=== PATIENT | female | born 2000 | race African-American/Black ===

== ENCOUNTER 2020-06-15 16:52 | Day surgery (SDC) | payer OTHER, MEDICAID ==
[2020-06-15 17:33] VITALS: BP 102/71; TEMP 98.8; BMI 20.2
--- NOTE | 2020-06-15 18:10 | PDOC.FPROB ---
FMR OB H&P: HPI - History of Present Illness Chief Complaint: Sent from clinic for variable decels and FHT in 160s Indentification: @ 36.0 wga by 1T US History of Present Illness: Patient was seen at [facility] by Dr. Sousa for the first time today. She reports receiving care in [place], [place] by Dr. Velásquez at the [facility]. She does not have any records with her and believes that she was last seen in March. She denies any issues during this and reports that she has not been told of any abnormal lab results. She denies vaginal bleeding, LOF, vaginal pain, and dysuria. She reports some intermittent vaginal discharge that is sometimes brown in color, but denies odor or itching. She endorses movement and occasional, irregular contractions. She says the contractions do not occur every day and are not consistent. Denies DIMAS, abdominal pain, change in vision, edema. Primary Care Physician: 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 - Surgical History Sx History: Denies - Social History Social History: Denies t/a/d; currently unemployed - Family History Family History: Reports DM and CHF in grandmother, HTN in mother, and asthma in brother FMR OB H&P: Medications - Current Home Medications: Medication Instructions Recorded Confirmed Type Vit No.129/Iron/Folic 1 each PO DAILY 06/15/20 06/15/20 History [ Tablet] Allergies/Adverse Reactions: Allergies Allergy/AdvReac Type Severity Reaction Status Date / Time No Known Allergies Allergy Verified 06/15/20 17:28 FMR OB H&P: ROS - Review of Systems General: denies: fever/chills, fatigue Eyes: denies: eye pain, vision changes, floaters ENT: denies: nasal congestion, rhinorrhea Cardiovascular: denies: chest pain, palpitation, edema Respiratory: denies: cough, congestion, shortness of breath Gastrointestinal: reports: nausea, constipation. denies: abdominal pain, vomiting, diarrhea Genitourinary (Female): reports: vaginal discharge, contractions. denies: dysuria, vaginal bleeding Musculoskeletal: denies: pain, tenderness Neurologic: denies: numbness, seizures Integumentary: denies: itching, rash Psychological: denies: depression, anxiety FMR OB H&P: Vital Signs - Maternal Vital signs: Vital Signs - First Documented Temp Pulse Resp BP 98.8 F 92 18 102/71 06/15/20 17:15 06/15/20 17:15 06/15/20 17:15 06/15/20 17:15 - Heart Tones Baseline: 130 Variability: moderate Acceleration: present Deceleration: absent [place] contractions every: q2-3 min, no feeling contractions FMR OB H&P: Physical Exam - Physical Exam General: NAD, awake, alert and oriented HEENT: normocephalic and atraumatic, PERRLA, EOMI, MMM Neck: supple, FROM Heart: RRR, normal S1/S2, no murmurs/rubs/gallops General: CTAB, no respiratory distress Abdomen: gravid, non-tender Musculoskeletal: FROM in all four extremities, no misalignment/asymmetry Neurological: cranial nerves II through XII intact, sensation to pain,touch and proprioception grossly normal Skin: no rash, no jaundice Lymphatic: no unusual bruising or bleeding, no purpura, no petechia Psychiatric: intact recent and remote memory, good judgement and insight, normal mood and affect - Pelvic Exam Vulva: normal hair distribution, appropriate jaylene stage SVE: 1, thick, posterior Presentation: Vertex Estimated Weight: other (2454) FMR OB H&P: A/P Disposition: 19 yo at 36 wga who presents from clinic due to concerning NST with FHT in 160s and variable decels sIUP with with concerning NST - per report, patient was found to have FHTs in 160s and multiple variable decels on NST - patient was sent from clinic for further evaluation - patient has had inconsistent care with last appointment in March - NST on L&D: Reactive; FHT baseline of 130 with moderate variability and no decels present - [place]: q 2-3 min, but patient is not feeling contractions - SVE: 1/thick/posterior - BPP: 03/28, vertex with anterior placenta - Growth: measuring at 34.6 wga with VAISHALI of 07/21; estimated weight of 2454 g - will obtain CBC, UDS, UA, GBS swab; 1 hour GTT not done - will encourage PO intake of fluids at this time and continue to monitor with NST pending lab results Dispo: will likely discharge patient home later tonight with close f/u with [facility] Discussion: Date/Time: 06/15/201809 This H&P was discussed with Dr. Siddiqui and Dr. Chamberlain who agree with the above documentation and plan. Agree with the above plan by Dr. Mcginnis. Will get labs, US. Will likely send patient home once these are completed. Will request records from provider in [place]. Patient to follow up at [facility] for continued care. Case discussed with Dr. Chamberlain. Addendum - Attending - Attending Attestation Date/Time: 06/15/201934 I personally evaluated the patient and discussed the management with Dr. Mcginnis I agree with the History, Examination, Assessment and Plan documented above with any addition or exceptions noted below. Patient sent for triage for evaluation of intermittent variables seen on NST in clinic. Patient reported good movement. Has had lapse in care since 2T. Records unavailable. heart tones reassuring on monitoring since arrival. BPP 03/28. growth less than expected based on patient stated VAISHALI. Intermittent to regular contractions on toco. However patient unaware. Full maternal bladder on imaging. After voiding, contraction pattern spaced. No c hange on exam. Ok to d/c to home. Precautions discussed. Patient to follow up with PCP later in the week. Ameya
--- NOTE | 2020-06-15 19:53 | ULT ---
LIMITED OB ULTRASOUND WITH BIOPHYSICAL PROFILE: Indications: Variable heart deceleration. FINDINGS: Viable intrauterine . Gestational age by ultrasound is 34 weeks 6 days. Biometry: BPD 36 weeks 0 days HC 34 weeks 5 days AC 34 weeks 2 days FL 34 weeks 2 days EFW: 2454 grams 35 weeks 1 day Amniotic fluid: Within normal range KAYLEN: 14.2 cm Position: Vertex Placenta: Anterior heart rate: 147 beats/minute tone: 2 breathin movement: 2 Amniotic fluid: 2 Total score 8/8. IMPRESSION: As above. POS: AGW
[2020-06-15 20:11] LABS: #Basophils 0.1 thou/uL (0.0-0.2); #Eosinphils 0.1 thou/uL (0.0-0.7); #Lymphocytes 1.5 thou/uL (1.20-3.40); #Monocytes 0.6 thou/uL (0.11-0.59); %Basophils 0.5 % (0.0-1.0); %Eosinophils 0.6 % (0.0-10.0); %Lymphocytes 13.5 % (21.0-51.0); %Monocytes 5.2 % (0.0-10.0); %Neutrophils 80.3 % (42.0-75.0); Hemoglobin 10.8 g/dL (12.0-16.0); Mean Corpuscular HGB CONC 35.2 g/dL (32.0-36.0); Mean Corpuscular Hemoglobin 29.2 pg (27.0-31.0); Mean Corpuscular Volume 83.1 fL (78.0-98.0); Mean Platelet Volume 8.5 fL (7.4-10.4); Platelet Count 221 thou/uL (130-400); RBC Distribution Width 13.5 % (11.5-14.5); Red Blood Cell (RBC) Count 3.69 mill/uL (4.20-5.40); White Blood Cell (WBC) Count 11.2 thou/uL (4.8-10.8)
[2020-06-15 21:32] LABS: Bacteria/HPF None Seen HPF (None Seen); Bilirubin Negative (Negative); Blood, Urine Negative (Negative); Clarity Clear (Clear); Glucose, Urine (Dipstick) Normal (Negative); Ketone, Urine 60 mg/dL (Negative); Leukocyte 500 Leu/uL (Negative); Nitrite Negative (Negative); Protein, Urine (Dipstick) Negative (Neg-Trace); RBC/HPF 0-3 HPF (0-3); Specific Gravity, Urine 1.014 (1.002-1.036); Urobilinogen Normal mg/dL (Less than 2)
[2020-06-15 21:40] LABS: Amphetamine Not Detected (NotDetected); Barbiturates Screen Not Detected (NotDetected); Benzodiazepine Screen Not Detected (NotDetected); Cocaine Metabolite Screen Not Detected (NotDetected); Medtox Control Line Valid? VALID (VALID); Medtox Reader # READER 4; Methadone Not Detected (NotDetected); Methamphetamine Not Detected (NotDetected); Opiate Screen Not Detected (NotDetected); Oxycodone Screen Not Detected (NotDetected); Phencyclidine (PCP) Not Detected (NotDetected); THC/Cannabinoid Screen Not Detected (NotDetected); Tricyclic Screen Not Detected (NotDetected)
== END 2020-06-15 21:25 | disposition home or self-care (01) ==
LOC: L&D/OP 16:52
PROVIDERS: ATTEND Student in an Organized Health Care Education/Training Program
DX: O36.8130 Decreased fetal movements, third trimester, not applicable or unspecified (principal); Z3A.36 36 weeks gestation of pregnancy
CPT/HCPCS: 76815; 76819; 80306; 81003; 81015; 85025; 87081; 99283

== ENCOUNTER 2020-07-07 10:25 | Inpatient (IN) | payer MEDICAID, OTHER ==
[~2020-07-07 10:25] MED LIST: PROPOFOL 200 MG/20 ML VIAL ONE; Succinylcholine 200 MG/10 ml SYRINGE FS ONE
--- NOTE | 2020-07-07 10:58 | PDOC.FPROB ---
FMR OB H&P: HPI - History of Present Illness Chief Complaint: Oligohydramnios, IUGR History of Present Illness: Patient is a 19 year old at 39,1k by LMP/14.4wk US who was referred to triage from clinic due to oligohydramnios with KAYLEN 3.5, DVP 1.83 and IUGR with Hadlock 8.9% in clinic today. Patient was lost to follow up during 2T at [facility] due to moving communities and established care at [facility] at 35 wks. +FM. Denies vaginal bleeding, vaginal discharge, and LOF. Also denies headache, vision changes, chest pain, SOB, upper abdominal pain and edema. Patient reports anxiety regarding possible delivery. Primary Care Physician: ALISON Sousa/Mary FMR OB H&P: Current - Care : 1 Para: 0 Gestational age: 39.1wk Due date: 07/13/20 Dating Criteria: LMP/14.4wk US Course/Complications: Anemia of on iron. Concern for oligohydramnios and IUGR on US today. BPP on 06/15 was 8/8. - OB Labs Blood type: O RH: positive Antibody Screen: negative HIV: negative RPR: negative HepBsAg: negative Rubella: immune Gonorrhea: negative Chlamydia: negative Pap Smear: NILM 01/22/20 1 hour gtt: 104 GBS: negative H&H: 9.8/28.5 - Anatomy Survey Anatomy survey: Hadlock 50% on 20 wk US FMR OB H&P: History - Past Medical History PMH: Anxiety, hx pyelonephritis, childhood trauma - OB History OB History: . Hx anemia of - [employer] History: Denies hx of STI - Surgical History Sx History: None - Social History Social History: Denies smoking, ETOH and drug use - Family History Family History: Mother - HTN Maternal grandfather - CHF Sibling - asthma FMR OB H&P: Medications - Current Home Medications: Medication Instructions Recorded Confirmed Type Vit No.129/Iron/Folic 1 each PO DAILY 06/15/20 06/15/20 History [ Tablet] Docusate [Colace] 100 mg PO DAILY 07/07/20 07/07/20 History Iron 18 mg PO DAILY 07/07/20 07/07/20 History Allergies/Adverse Reactions: Allergies Allergy/AdvReac Type Severity Reaction Status Date / Time Fish Containing Products Allergy Intermediate Hives Verified 07/07/20 11:33 peanut Allergy Intermediate Hives Verified 07/07/20 11:33 FMR OB H&P: ROS - Review of Systems General: denies: fever/chills, fatigue Eyes: denies: vision changes, double vision ENT: denies: nasal congestion Cardiovascular: denies: chest pain, edema Respiratory: denies: shortness of breath Gastrointestinal: denies: abdominal pain Genitourinary (Female): denies: dysuria, hematuria, vaginal discharge, vaginal pain, vaginal bleeding, contractions Musculoskeletal: denies: pain Neurologic: denies: weakness, headache Integumentary: denies: rash Hematologic/Lymphatic: denies: prolonged or excessive bleeding Psychological: denies: depression, anxiety FMR OB H&P: Vital Signs - Maternal Vital signs: BP 106/70 - Heart Tones Baseline: 130 Variability: moderate Acceleration: present Deceleration: absent Category: category 1 [place] contractions every: 5 min FMR OB H&P: Physical Exam - Physical Exam General: NAD, awake, alert and oriented Deviation from normal: Tearful HEENT: normocephalic and atraumatic, MMM Neck: FROM, trachea midline Heart: RRR, normal S1/S2, no murmurs/rubs/gallops, no edema General: CTAB, no respiratory distress, good air movement Abdomen: gravid, bowel sound present Musculoskeletal: FROM in all four extremities, no misalignment/asymmetry Neurological: no focal deficit Skin: no jaundice Psychiatric: normal mood and affect - Pelvic Exam Vulva: normal hair distribution, no lesions, no discharge, no blood Deviation from normal: 1/T/-3 Tierney score: 1 Presentation: Cephalic FMR OB H&P: A/P Disposition: 19 year old who was sent to triage from clinic due to IUGR and oligohydramnios on US Eng IUP at 39.1wk by LMP/14.4wk US. GBS negative. Tierney score 1. -Order full BPP and growth scan to confirm oligo/IUGR -Consider mIOL via cytotec pending results -Refused COVID screen 1220 1/T/-3, variable decels present on initial monitoring but have resolved IUGR 20 wk US Hadlock 50%. Hadlock in clinic today 8.9%. -F/u US Oligohydramnios KAYLEN 14 with BPP / on 06/15. KAYLEN 3.5 in clinic today. -F/u US Anemia of -On iron, PNV Anxiety Childhood trauma -Reports mood is controlled with herbal remedies UPDATE @ 4009 OB US: Hadlock 13% BPD, 8% HC, unable to calculate AC, 1% FL. Unable to calculat e EFW. BPP: 01/26. KAYLEN total 4.8 (0, 3.26, 0, 1.56). Patient agreed to induction. Will began cytotec PO per patient preference. Order cytotec 50mg Q4H. Dispo: Admit to L&D for mIOL for IUGR and oligo. Next cervical check at 1715. Discussion: Date/Time: 07/07/20 9610 This H&P was discussed with [Tree Solitario] and [Lonnie] who agree with the above documentation and plan. Addendum - Attending - Attending Attestation Date/Time: 07/08/20 0898 I personally evaluated the patient and discussed the management with Dr. Bishop. I agree with the History, Examination, Assessment and Plan documented above with any addition or exceptions noted below.
[2020-07-07 11:32] VITALS: BMI 21.6
[2020-07-07] MEDS ORDERED: hydrALAZINE 20 MG/ML VIAL SLOW IVP PRN (12:12)
[2020-07-07] MEDS ORDERED: Ondansetron PF 4 MG/2 ML Vial IVP PRN ×2 (13:10→17:19)
[2020-07-07] MEDS ORDERED: Lidocaine 1% (PF) 30 ML VIAL SC PRN (13:10)
[2020-07-07] MEDS ORDERED: NS / Oxytocin 40 units/1000ml 1,000 ML IV PRN (13:10)
[2020-07-07] MEDS ORDERED: Acetaminophen 500 MG TAB PO PRN (13:10)
[2020-07-07] MEDS ORDERED: Promethazine HCl 25 MG/ML VIAL IM PRN ×2 (13:10→17:19)
[2020-07-07] MEDS ORDERED: Lactated Ringer's 1,000 ML IV SCH (13:15)
[2020-07-07] MEDS ORDERED: Misoprostol 100 MCG TAB PO SCH (13:15)
[2020-07-07 13:51] LABS: Hemoglobin 9.9 g/dL (12.0-16.0); Mean Corpuscular Hemoglobin 28.1 pg (27.0-31.0); Mean Corpuscular Volume 80.2 fL (78.0-98.0); Mean Platelet Volume 9.1 fL (7.4-10.4); Platelet Count 199 thou/uL (130-400); RBC Distribution Width 14.1 % (11.5-14.5); Red Blood Cell (RBC) Count 3.53 mill/uL (4.20-5.40); White Blood Cell (WBC) Count 9.6 thou/uL (4.8-10.8)
[2020-07-07 14:32] LABS: Syphilis Antibody Nonreactive (Nonreactive); Syphilis Antibody Index 0.05 S/CO (<1.00 Non-Reactive)
[2020-07-07 14:33] LABS: HBSAg Index 0.16 S/CO (0-0.99); Hep B Surf Ag Non-Reactive S/CO (NonReactive)
[2020-07-07] MEDS ORDERED: Terbutaline Sulfate 1 MG/ML VIAL ONE (14:45)
--- NOTE | 2020-07-07 14:57 | PDOC.LDPN ---
Labor & Delivery Progress Note - Subjective Subjective: other (expressed concern about baby's health, tearful) - Objective Vital signs reviewed and normal: yes General: NAD FHT: category 2, late decelerations (recurrent late decels, dropping to 60s) [place] contractions every: 1-2 min Resuscitative measures: maternal IV fluids, maternal position change Plan: resuscitative measures -: 19 year old who was admitted to L&D for mIOL for IUGR and oligohydramnios Eng IUP at 39.1wk by LMP/14.4wk US. GBS negative. Tierney score 1. -Full BPP/Growth scan confirmed IUGR and oligo -Refused COVID screen 1220 1/T/-3, variable decels present on initial monitoring but have resolved 1350 PO cytotec #1 administered 1430 Paged by nursing. Recurrent late decels with FHT in 60s. Contractions every 1-2 min. Ordered terbutaline that resolved lates. Decision was made to go to c- section due to oligo, IUGR and intolerance of labor. IUGR 20 wk US Hadlock 50%. Hadlock in clinic today 8.9%. -OB US on L&D: Hadlock 13% BPD, 8% HC, unable to calculate AC, 1% FL. Unable to calculate EFW. Oligohydramnios KAYLEN 14 with BPP / on 06/15. KAYLEN 3.5 in clinic today. -BPP on L&D: 01/26. KAYLEN total 4.8 (0, 3.26, 0, 1.56) Anemia of -On iron, PNV Anxiety Childhood trauma -Reports mood is controlled with herbal remedies Dispo: Risks and benefits of were discussed with the patient who expressed her understanding. Will proceed with by Dr. Jose Sousa. ATTENDING ADDENDUM: see my event note for details.
[2020-07-07] MEDS ORDERED: Bicitra 30 ML UDCUP ONE (14:58)
--- NOTE | 2020-07-07 15:05 | PDOC.EVN ---
Event Note - Event Note Event Note: Called by residents that patient was experiencing recurrent lates after cytotec. I told to admin terbutaline for tocolysis. I evaluated the patient and FHT. Baby was having recurrent lates into the 60s which have resolved with terbutaline. Given oligo, IURG, and now intolerance of labor, discussed recommendation for pLTCS. Discussed R/B/A/I for procedure and patient agreed. nursing and anesthesia notified. will proceed with urgent pLTCS. ancef 2g ordered.
--- NOTE | 2020-07-07 15:07 | ULT ---
LIMITED OBSTETRICAL ULTRASOUND BIOPHYSICAL PROFILE: Date: 07/07/2020 INDICATION: Growth and full BFP. COMPARISON: Prior exam dated 06/15/2020. FINDINGS: Biophysical profile for this fetus is 8/8. Fetus received 2/2 for tone, breathing, moveme nts, and amniotic fluid level. Amniotic fluid index is 4.8 cm. Cervical length is 3.5 cm, without evidence of funneling. Fetus in vertex presentation. Placenta is anterior and to left aspect of uterus. Cardiac activity is noted at 150 beats/minute. BPD measured 8.98 cm, giving estimated gestational age of 36 weeks/3 days. HC measured 32.90 cm, giving estimated gestational age of 37 weeks/3 days. AC measured 27.58 cm, giving estimated gestational age of 31 weeks/5 days FL measured 6.89 cm, giving estimated gestational age of 35 weeks/3 days. Estimated weight is 2270 gm +/- 336 gm (5 lbs 0 oz +/- 12 oz). Average gestational age by ultrasound based on biometry is 35 weeks and 2 days with estimated d ue date of 08/09/2020. Clinical age is 39 weeks and 1 day with estimated due date of 07/13/2020. IMPRESSION: 1. Biophysical profile is 8/8. 2. Size and dates as above. 3. Oligohydramnios of 4.8 cm. POS: BH
[2020-07-07] MEDS ORDERED: Morphine PF 10 MG/10 ML VIAL ONE (15:14)
[2020-07-07] MEDS ORDERED: Ondansetron PF 4 MG/2 ML Vial ONE ×2 (15:14→16:56)
[2020-07-07] MEDS ORDERED: ePHEDrine 50 MG/ML VIAL ONE (15:14)
[2020-07-07] MEDS ORDERED: Oxytocin 10 UNITS/ML VIAL ONE (15:14)
[2020-07-07] MEDS ORDERED: CEFAZOLIN 2 GM in Premix Bag 1 BAG IVPB SCH (15:15)
[2020-07-07] MEDS ORDERED: Terbutaline Sulfate 1 MG/ML VIAL SC SCH (15:15)
[2020-07-07] MEDS ORDERED: Bicitra 30 ML UDCUP PO SCH ×2 (15:15)
[2020-07-07] MEDS ORDERED: PHENYLEPHRINE-NS 100 MCG/ML 10 ML SYRINGE ONE (15:42)
[2020-07-07] MEDS ORDERED: Lidocaine 1% PF 5 ML VIAL ONE (15:48)
[2020-07-07] MEDS ORDERED: Midazolam HCl 2 mg/2 ml Vial ONE (15:55)
[2020-07-07] MEDS ORDERED: Fentanyl 250 MCG/5 ML VIAL ONE (15:55)
[2020-07-07 16:20] LABS: Actual Bicarbonate (HCO3a) 22.3 mEq/L (22-28); Base Excess (BEa) -4.5 mEq/L (-2.0 to +3.0)
[2020-07-07 16:23] LABS: Actual Bicarbonate (HCO3v) 23 mEq/L (22-28); Base Excess -4.9 mEq/L (-2.0 to +3.0); pH (Cord, venous) 7.25 (7.32-7.43)
[2020-07-07] MEDS ORDERED: Dexamethasone 4 mg/ml Vial ONE (16:35)
--- NOTE | 2020-07-07 17:14 | PDOC.OPDEL ---
OB Operative/Delivery Note Delivery Dr/Surgeon: Clementine/Merry Pre-Delivery Diagnosis: medically indicated induction (Oilgo, IUGR), non- reassuring tracing Anesthesia: other (general) - Findings A Sex: male - 1 min: 2 - 5 min: 8 - Additional Findings/Plan Placenta delivered: spontaneous findings: low transverse hysterotomy without extension, normal uterus, normal tubes, normal ovaries Estimated blood loss: 540 Compilations/Other Findings: Date of Procedure: 07/07/20 Resident Surgeon: Clementine Attending Surgeon: Merry Procedure: Primary low transverse caesarean section Preoperative Diagnosis: 1) Term intrauterine 2) Oligohydramnios 3) IUGR 4) Non-reassuring heart tones, failed induction of labor 5) Anemia of Postoperative Diagnosis: 1) Term , delivered Anesthesia: General Indications: The patient is a 19year old female at 39.1 weeks gestation who presented for medically indicated induction of labor for oligohydramnios and IUGR. After initial oral cytotec dose, FHR demonstrated recurrent late decels with prolonged bradycardia. Terbutaline was give and discussion was had with patient regarding proceeding with pLTCS for failed induction of labor and NRFHT. After R/B/A, patient agreed to proceed with pLTCS. At time of transfer to OR from L&D, FHT was cat 1. Procedure in Detail: After risks, benefits, and alternatives were explained to the patient, she gave informed consent. Pre-operative antibiotics included Cefazolin 2 gram IV. The patient was taken to the operating room and spinal anesthesia was initiated. She was placed in the supine position with a left tilt and prepped and draped in usual sterile fashion. Testing of spinal was positive for sharp pain and thus decision was made to transition to general anesthesia. General anesthesia was initiated. A Pfannenstiel incision was made with a scalpel and carried down to the level of the fascia which was sharply nicked. The fascial cut was extended bilaterally with Chaves scissors. The inferior and superior edges of the cut fascial edges were elevated with Maribell clamps and the underlying rectus muscles were sharply and bluntly dissected free. The recti were divided digitally and retracted manually. The peritoneum was entered bluntly and retracted manually. Tanvir-O was placed. A low transverse score was made with a new, clean scalpel and the uterus was entered in the midline bluntly. Clear fluid was seen. The hysterotomy was extended manually. The was noted to be vertex and easily delivered with fundal pressure at 1556. Mouth and nares were bulb suctioned. Cord clamped and cut and grossly normal male was handed to waiting nurse. Cord blood and cord gas were obtained. Placenta was delivered spontaneously, found to be intact with 3 vessel cord and sent for pathology. The uterus was externalized and the endometrium was curetted with a dry lap. The uterus was closed with a running locking #1 Monocryl. Following this hemostasis was noted. The uterus was internalized, Tanvir-O removed and the hysterotomy was again noted to be hemostatic. The peritoneum was reapproximated using a running, non-locking 3-0 Vicryl. The rectus were reapproximated with a single horizontal mattress suture using 1-0 Monocryl. The fascia was closed with a running non-locking 0-PDS suture. The subcutaneous tissue was irrigated and bleeders were coagulated with the bovie electrocautery. The skin was approximated with a running subcuticular suture using 4-0 Monocryl and a pressure dressing was placed. All counts were correct. The patient tolerated the procedure well and was extubated in the OR and was taken to the recovery room in stable condition. QBL: 540cc Complications: None Specimens: Cord blood sent to lab for blood type. Cord Gas and Placenta sent to lab. Findings: Grossly normal male with Apgars of 2 and 8. Grossly normal placenta with 3 vessel cord sent for pathology. Drains: Dixon to gravity draining clear urine ATTENDING ADDENDUM I was present for and supervised the entire procedure. Post delivery plan: routine recovery
[2020-07-07] MEDS ORDERED: HYDROmorphone 2 MG/ML VIAL SLOW IVP PRN (17:19)
[2020-07-07] MEDS ORDERED: Meperidine HCl/PF 25 MG/ML VIAL SLOW IVP PRN (17:19)
[2020-07-07] MEDS ORDERED: Ondansetron HCl/PF 4 MG/2 ML Vial IVP PRN (17:19)
[2020-07-07] MEDS ORDERED: Naloxone HCl 0.4 mg/ml Vial IV PRN (17:19)
[2020-07-07] MEDS ORDERED: L&D-Morphine 4 MG/ML VIAL SLOW IVP PRN (17:19)
[2020-07-07] MEDS ORDERED: diphenhydrAMINE 50 MG/ML VIAL IVP PRN (17:19)
[2020-07-07] MEDS ORDERED: Promethazine HCl 25 MG SUPP PR PRN (17:19)
[2020-07-07] MEDS ORDERED: Ketorolac Tromethamine 30 MG/ML VIAL IVP PRN (17:19)
[2020-07-07] MEDS ORDERED: Naloxone HCl 0.4 mg/ml Vial IVP PRN ×2 (17:19)
[2020-07-07] MEDS ORDERED: Ketorolac Tromethamine 30 MG/ML VIAL IVP SCH (17:30)
[2020-07-07] MEDS ORDERED: Communication Order-Pharmacy FS SCH (17:30)
[2020-07-07] MEDS ORDERED: Acetaminophen 325 MG TAB PO PRN (20:36)
[2020-07-07] MEDS ORDERED: Simethicone Chewable 80 MG TAB PO PRN (20:36)
[2020-07-07] MEDS ORDERED: Lanolin Ointment 7 GM TUBE TOP PRN (20:36)
[2020-07-07] MEDS ORDERED: HYDROcodone/Acetaminophen 5/325 mg Tablet PO PRN (20:36)
--- NOTE | 2020-07-07 21:07 | PDOC.BPN ---
- Brief Progress Note Encounter Date: 07/07/20 Encounter Time: 20:45 4 hour post op check: S: Feeling tired but otherwise well. Pain controlled. Denies CP, SOB, palpitations, dizziness. O: RRR, CTAB. Pressure dressing over incision appears clean/dry. Fundus firm, just below umbilicus, with some vaginal expression of blood on fundal massage. VS wnl. UOP 300 cc over past hour since arrival to post . A/P: - F/u post-op QBL, requested weight of nick pads - Continue to monitor for any signs of PPH - tachycardia, hypotension, dizziness, palpitations, SOB. - UOP and pain appropriate, continue to monitor. B. Rehg, DO, PGY-1
--- NOTE | 2020-07-08 07:22 | PDOC.OBPPN ---
FMR OB PN: Subj - Interval History Hospital Day: 1 Day: 1 Chief Complaint: Post-Op Day #1, pCSx due to NRFHT Indentification: G1>P1 Interval History: No complaints FMR OB PN: Obj - Maternal Vital signs: BP: [99/66] HR: [81] RR: [18] Tmax: [97.9] Pox: [100]% on [Room Air] Wt: [] - Urine output I&O: 07/07/20 07/08/20 07/09/20 06:59 06:59 06:59 Output Total 885 Balance -885 - Lochia Lochia: Minimal - Pain Management Pain scale: 2 Intervention: oral medication FMR OB PN: Exam - Physical Exam General: NAD, awake, alert and oriented HEENT: normocephalic and atraumatic, EOMI, MMM, conjunctiva clear, grossly normal vision, grossly normal hearing Neck: supple, FROM Chest: non-tender to palpation, no lesions Breast: symmetric Heart: RRR, normal S1/S2, no murmurs/rubs/gallops, pulses present, no edema General: CTAB, no respiratory distress, good air movement, no rales/rhonchi, no wheezing, no retractions Abdomen: soft, non-tender, bowel sound present Musculoskeletal: pulses present, FROM in all four extremities, no misalignment/asymmetry, no atrophy Neurological: sensation to pain,touch and proprioception grossly normal : bandage intact, incision healing well, no erythema, no edema, no drainage, appropriately tender Psychiatric: intact recent and remote memory, good judgement and insight, normal mood and affect - Pelvic Exam : non-tender, no discharge, no edema, normal lochia (Reported as light - "like a period") FMR OB PN: Data - Labs Lab results: Laboratory Results - last 24 hr 07/07/20 07/07/20 07/07/20 13:42 13:42 13:42 WBC RBC Hgb Hct MCV MCH MCHC RDW Plt Count MPV Bicarbonate Actual ABG Base Excess VBG HCO3 VBG Base Excess Cord ABG pH Cord ABG PCO2 (Ania) Cord VBG pH Cord VBG pCO2 Syphilis IgG/IgM Ab Nonreactive Hep Bs Antigen Non-Reactive Blood Type O POSITIVE Antibody Screen NEGATIVE 07/07/20 07/07/2020 13:42 14:01 16:17 WBC 9.6 RBC 3.53 L Hgb 9.9 L Hct 28.4 L MCV 80.2 MCH 28.1 MCHC 35.0 RDW 14.1 Plt Count 199 MPV 9.1 Bicarbonate Actual 22.3 ABG Base Excess -4.5 L VBG HCO3 VBG Base Excess Cord ABG pH 7.290 Cord ABG PCO2 (Ania) 47.5 Cord VBG pH Cord VBG pCO2 Syphilis IgG/IgM Ab Hep Bs Antigen Blood Type O POSITIVE Antibody Screen 07/07/20 16:18 WBC RBC Hgb Hct MCV MCH MCHC RDW Plt Count MPV Bicarbonate Actual ABG Base Excess VBG HCO3 23 VBG Base Excess -4.9 L Cord ABG pH Cord ABG PCO2 (Ania) Cord VBG pH 7.25 L Cord VBG pCO2 54.0 Syphilis IgG/IgM Ab Hep Bs Antigen Blood Type Antibody Screen FMR OB PN: A/P Disposition: Patient is a 19 y/o G1>P1 female at 39.1W EGA by LMP, c/w 14W US, who presented to L&D for evaluation of Oligohydramnios and IUGR. 1. SIUP, delivered via pCSx -Delivered a TAGAM at 1556 on 07/07/2020 -QBL: 540 ml -Unremarkable interval history -BP reviewed - no marked abnormalities noted -Physical exam unremarkable, with uterine fundus below the level of the umbilicus and appropriately tender -Pain adequately controlled - Tylenol, Ibuprofen, Ketorolac, Hydrocodone PRN -Dixon dc'd with adequate output noted by Nursing Staff - will initiate voiding trial this AM -Currently well - no noted difficulties -: Consulted PCP: ALISON Hernandez Code: Full Diet: NPO - Advance as Tolerated Activity: Ambulate w/ Assist VTE PPx: SCDs IVF: None Dispo: Patient is currently stable and admitted to [facility] following pCSx. Will control pain and advance diet as per above. Expected LOS < 48H. Discussion: Date/Time: 07/08/20 0720 This H&P was discussed with [] and [] who agree with the above documentation and plan. Addendum - Attending - Attending Attestation Date/Time: 07/08/20 1645 I personally evaluated the patient and discussed the management with Dr. Hernandez. I agree with the History, Examination, Assessment and Plan documented above with any addition or exceptions noted below.
[2020-07-08 07:47] LABS: Hemoglobin 7.6 g/dL (12.0-16.0); Mean Corpuscular HGB CONC 35.8 g/dL (32.0-36.0); Mean Corpuscular Hemoglobin 28.9 pg (27.0-31.0); Mean Corpuscular Volume 80.6 fL (78.0-98.0); Mean Platelet Volume 9.1 fL (7.4-10.4); Platelet Count 178 thou/uL (130-400); RBC Distribution Width 13.9 % (11.5-14.5); Red Blood Cell (RBC) Count 2.61 mill/uL (4.20-5.40); White Blood Cell (WBC) Count 18.7 thou/uL (4.8-10.8)
[2020-07-08] MEDS: Docusate Calcium (SURFAK) 240 MG CAP PO SCH ×3 (07:57→20:34)
[2020-07-08] MEDS: Ferrous Sulfate 325 MG TAB PO SCH (07:59)
[2020-07-08] MEDS: Ibuprofen 800 MG TAB PO SCH ×2 (08:44→16:41)
[2020-07-08] MEDS ORDERED: Adacel (T-DAP) 0.5 ML SYRINGE IM ONE (09:00)
[2020-07-09] MEDS: Ibuprofen 800 MG TAB PO SCH ×2 (00:08→09:53)
--- NOTE | 2020-07-09 07:32 | PDOC.OBPPN ---
FMR OB PN: Subj - Interval History Hospital Day: 2 Day: 2 Chief Complaint: Post-Op Day #2, pCSx due to NRFHT Indentification: G1>P1 Interval History: No complaints FMR OB PN: Obj - Maternal Vital signs: BP: [97/54] HR: [79] RR: [18] Tmax: [98.2] Pox: [100]% on [Room Air] Wt: [] - Urine output I&O: 07/08/20 07/09/20 07/10/20 06:59 06:59 06:59 Intake Total 1450 Output Total 3579 66 Balance -2128 - - Lochia Lochia: Minimal - decreased from previous encounter - Pain Management Pain scale: 1 Intervention: oral medication FMR OB PN: Exam - Physical Exam General: NAD, awake, alert and oriented HEENT: normocephalic and atraumatic, EOMI, MMM, conjunctiva clear, no scleral icterus, grossly normal vision, grossly normal hearing Neck: supple, FROM, trachea midline, no LAD Chest: non-tender to palpation, no lesions Breast: symmetric, non-tender Heart: RRR, normal S1/S2, no murmurs/rubs/gallops, pulses present, no edema General: CTAB, no respiratory distress, good air movement, no rales/rhonchi, no wheezing, no retractions Abdomen: soft, non-tender, bowel sound present Musculoskeletal: pulses present, FROM in all four extremities, no misalignment/asymmetry, no atrophy Neurological: sensation to pain,touch and proprioception grossly normal : bandage intact, incision healing well, no erythema, no edema, no drainage, appropriately tender Lymphatic: no unusual bruising or bleeding, no purpura, no LAD Psychiatric: intact recent and remote memory, good judgement and insight, normal mood and affect FMR OB PN: Data - Labs Lab results: Laboratory Results - last 24 hr 07/08/20 07:26 WBC 18.7 H RBC 2.61 L Hgb 7.6 L Hct 21.1 L MCV 80.6 MCH 28.9 MCHC 35.8 RDW 13.9 Plt Count 178 MPV 9.1 FMR OB PN: A/P - Problem List (1) Intrauterine Status: Acute Code(s): Z34.90 - ENCNTR FOR SUPRVSN OF NORMAL , UNSP, UNSP TRIMESTER (2) delivery delivered Status: Acute Code(s): O82 - ENCOUNTER FOR DELIVERY WITHOUT INDICATION (3) Leukocytosis Status: Acute Code(s): D72.829 - ELEVATED WHITE BLOOD CELL COUNT, UNSPECIFIED (4) Anemia Status: Acute Code(s): D64.9 - ANEMIA, UNSPECIFIED Disposition: Patient is a 19 y/o G1>P1 female at 39.1W EGA by LMP, c/w 14W US, who presented to L&D for evaluation of Oligohydramnios and IUGR. 1. SIUP, delivered via pCSx -Delivered a TAGAM at 1556 on 07/07/2020 -QBL: 540 ml -Unremarkable interval history -BP reviewed - no marked abnormalities noted -Physical exam unremarkable, with uterine fundus below the level of the umbilicus and appropriately tender -Pain adequately controlled - Tylenol, Ibuprofen, Ketorolac, Hydrocodone PRN -Voiding and passing gas without difficulty -Currently well - no concerns -: Consulted - Contraception: Refused - patient wishes to remain abstinent -Patient counseled on the importance of avoidance of heavy lifting and pelvic rest for 6W 2. Leukocytosis -WBCs: 9.6 > 18.7 -Possibly reactive s/p pCSx - patient is asymptomatic without fevers or chills -Physical exam unremarkable - incision site healing well and appropriately tender -Will redraw CBC this AM to trend 3. Anemia -H.9 > 7.6 -Hct: 28.4 > 21.1 -QBL: 540 ml -Patient is currently asymptomatic without tachycardia or tachypnea -Will redraw CBC this AM to trend - will consider transfusing 1u PRBCs or Iron Infusion if indicated PCP: ALISON Hernandez Code: Full Diet: NPO - Advance as Tolerated Activity: Ambulate w/ Assist VTE PPx: SCDs IVF: None Dispo: Patient is currently stable and admitted to [facility] following pCSx. Will control pain and await repeat AM Labs as per above - will alter plan of care if indicated. Patient otherwise appears to be recovering well and bonding well with her child - will likely DC later today and plan for Visit within 6W. Expected LOS < 24H. Discussion: Date/Time: 07/09/20 0732 This H&P was discussed with [] and [] who agree with the above documentation and plan. Addendum - Attending - Attending Attestation Date/Time: 07/10/20 [id number] I personally evaluated the patient and discussed the management with Dr. Hernandez. I agree with the History, Examination, Assessment and Plan documented above with any addition or exceptions noted below. Her vitals are stable and she is asymptomatic. we will follow her anemia post outpatient.
[2020-07-09] MEDS: Ferrous Sulfate 325 MG TAB PO SCH (09:52)
[2020-07-09] MEDS: Docusate Calcium (SURFAK) 240 MG CAP PO SCH (09:53)
[2020-07-09] MEDS ORDERED: Cepastat Lozenges 1 LOZ PO PRN (10:13)
[2020-07-09 11:49] VITALS: BP 118/55; TEMP 98.6
== END 2020-07-09 16:45 | disposition home or self-care (01) | DRG 787 ==
LOC: L&D/OP 10:25 → L&D 16:34 → 3SW 20:29
PROVIDERS: ADMIT Family Medicine; ATTEND Family Medicine
PROC: 10D00Z1 Extraction of Products of Conception, Low, Open Approach (ICD-10-PCS; principal; 2020-07-07)
DX: O76 Abnormality in fetal heart rate and rhythm complicating labor and delivery (principal); O41.03X0 Oligohydramnios, third trimester, not applicable or unspecified; O36.5930 Maternal care for other known or suspected poor fetal growth, third trimester, not applicable or unspecified; O99.02 Anemia complicating childbirth; D64.9 Anemia, unspecified; O99.344 Other mental disorders complicating childbirth; F41.9 Anxiety disorder, unspecified; Z91.010 Allergy to peanuts; Z37.0 Single live birth; Z3A.39 39 weeks gestation of pregnancy; Z91.013 Allergy to seafood; O61.0 Failed medical induction of labor; D72.829 Elevated white blood cell count, unspecified
CPT/HCPCS: 36415; 51702; 76815; 76819; 82805; 85027; 86780; 86850; 86900; 86901; 87340; 88307; J0690; J1100; J1885; J2250; J2270; J2405; J2704; J3010; J3105; J3490